=== PATIENT | female | born 1970 | race Two or more races ===

== ENCOUNTER 2020-06-20 09:29 | Emergency (ER) | payer OTHER ==
[~2020-06-20] VITALS: Ht 157.5 cm; Wt 59.0 kg
[2020-06-20] MEDS ORDERED: BUTALB-ASPIRIN1 EACH PO (12:11)
== END 2020-06-20 12:19 | disposition home or self-care (01) ==
LOC: ER 09:29
DX: G44.209 Tension-type headache, unspecified, not intractable (principal); M62.838 Other muscle spasm

== ENCOUNTER 2021-09-28 06:24 | Emergency (ER) | payer OTHER ==
[~2021-09-28] VITALS: Ht 157.5 cm; Wt 60.3 kg
[~2021-09-28 06:24] MED LIST: BUTALB-ASPIRIN1 EACH PO
[2021-09-28] MEDS ORDERED: TAMS0.4C PO (13:03)
[2021-09-28] MEDS ORDERED: IBU600 MG PO (13:03)
[2021-09-28] MEDS ORDERED: BACTRIM 400-801 EACH PO (13:05)
== END 2021-09-28 13:12 | disposition home or self-care (01) ==
LOC: ER 06:24
DX: N30.91 Cystitis, unspecified with hematuria (principal); R30.0 Dysuria; B96.20 Unspecified Escherichia coli [E. coli] as the cause of diseases classified elsewhere; Z16.11 Resistance to penicillins

== ENCOUNTER → 2021-11-09 | Emergency (ER) | payer OTHER ==
[~2021-11-09] VITALS: Ht 157.5 cm; Wt 66.2 kg
[~2021-11-09] MED LIST changes: +BACTRIM 400-801 EACH PO; +IBU600 MG PO; +TAMS0.4C PO
== END | disposition home or self-care (01) ==
LOC: ER 09:21
DX: N39.0 Urinary tract infection, site not specified (principal); B96.20 Unspecified Escherichia coli [E. coli] as the cause of diseases classified elsewhere; Z16.11 Resistance to penicillins

== ENCOUNTER 2022-02-11 12:42 | Emergency (ER) | payer OTHER ==
[~2022-02-11] VITALS: Ht 157.5 cm; Wt 64.4 kg
== END 2022-02-11 21:07 | disposition home or self-care (01) ==
LOC: ER 12:42
DX: M54.2 Cervicalgia (principal)

== ENCOUNTER 2023-02-27 18:30 | Emergency (ER) | payer OTHER ==
[~2023-02-27] VITALS: Ht 162.6 cm; Wt 74.8 kg
== END 2023-02-27 20:44 | disposition home or self-care (01) ==
LOC: ER 18:30
DX: L02.91 Cutaneous abscess, unspecified (principal)